=== PATIENT | male | born 1945 | race Caucasian/White ===

== ENCOUNTER 2017-08-27 11:17 | Outpatient (CLI) | payer MEDICARE ==
--- NOTE | 2017-08-27 12:42 | RAD ---
LUMBAR SPINE 3 VIEWS: HISTORY: M54.5, low back pain. COMPARISON: None. FINDINGS: Moderate degenerative disk space height loss throughout the lumbar spine. Grade I 3 mm L4 to L5 ante rolisthesis in neutral position which does not significantly change with flexion or extension. Large anterior osteophytes throughout the spine. There is extensive degenerative disease of the interspinous space between L3-L5 with subchondral scle rosis and erosions. IMPRESSION: 1. Degenerative changes. No acute abnormality. 2. Grade I L4-L5 anterolisthesis without translation. 3. Moderate advanced degenerative disease of the infraspinatus spaces lower lumbar spine. POS: MIKI
== END 2017-08-27 11:18 | disposition home or self-care (01) ==
LOC: TBSIIMAG 11:17
PROVIDERS: ATTEND Neurological Surgery
DX: M54.5 Low back pain (principal); M47.896 Other spondylosis, lumbar region; M43.16 Spondylolisthesis, lumbar region
CPT/HCPCS: 72100

== ENCOUNTER 2018-04-30 05:51 | Inpatient (IN) | payer MEDICARE ==
--- NOTE | 2018-04-29 20:05 | HP ---
HISTORY OF PRESENT ILLNESS: Mr. De Luna is a 72-year-old male, who presents with low back pain with symptoms of neurogenic claudication. He has these symptoms for several years, the pain is in his bilateral buttox and is getting worse.When standing he has to lean forward or sit down to relive the pain. the low back is non-tender to palpation. He is unable to walk for more than a block because of the pain. he has not had any physical therapy or injections in the lumbar spine. If he goes shopping he needs a cart, to lean on. REVIEW OF SYSTEMS: A 10-point review of systems has been completed and is negative other than stated in the above HPI. PAST MEDICAL HISTORY: 1. Hypertension. 2. Diabetes type 2. 3. Lumbar spinal stenosis. FAMILY HISTORY: Father is , diagnosed with cancer. Mother is , diagnosed with cancer. Siblings are alive. SOCIAL HISTORY: Former smoker, retired, with three children. MEDICATIONS: 1. Amlodipine. 2. Amiodarone. 3. Clonidine. 4. Gabapentin. 5. Hydralazine. 6. Lisinopril. 7. Metoprolol. 8. Onglyza. 9. Aspirin 81 mg. 10. Fish oil. ALLERGIES: NO KNOWN DRUG ALLERGIES. PHYSICAL EXAMINATION: HEENT: Head is normocephalic and atraumatic. Hearing is intact. Vision is intact. Pupils are equal, round, and reactive to light. Extraocular movements are intact. Moist mucous membranes. Trachea is midline. No masses are noted. PSYCH: Normal mood and affect. RESPIRATIONS: Normal work of breathing on room air. MUSCULOSKELETAL: Extremities,5/5 strength in bilateral iliopsoas, quadriceps, hamstrings, right TA and EHL All lung ayala clear. No wheezing or crackles. NEUROLOGIC: The patient is awake and alert. Cranial nerves II through XII are grossly intact. Speech is fluent. Answers questions appropriately. The patient walks with a forward flexion. Diminished reflexes ASSESSMENT AND PLAN: Lumbar stenosis with neurogenic claudication. Dr. Gonzalez has offered laminectomy with TLIF We have discussed the indications, risks, and benefits, and alternatives and expected results from surgery. The risks discussed included, but were not limited to, bleeding, infection, CSF leak, nerve damage, weakness, incontinence, spinal cord injury, wheelchair dependence, loss of vision, hardware displacement, cardiopulmonary complications of anesthesia or . Long-term complications discussed include, but were not limited to degradation of surrounding disks or need for further surgery. The patient states understanding and is willing to proceed with surgery. Job ID: [id number] [facility]
[2018-04-30] MEDS ORDERED: Thrombin 5000 UNITS/5 ML VIAL ONE (06:21)
[2018-04-30] MEDS ORDERED: Bupivacaine HCl 0.5%/Epinephrine 1:200,000/PF 30 ml Vial ONE (06:21)
[2018-04-30] MEDS ORDERED: Sodium Chloride 0.9% 30 ML ONE (06:21)
[2018-04-30] MEDS ORDERED: CEFAZOLIN 2 GM/50 ML BAG ONE (06:21)
[2018-04-30 06:27] LABS: Hemoglobin 12.1 g/dL (14.0-18.0); Mean Corpuscular HGB CONC 33.1 g/dL (32.0-36.0); Mean Corpuscular Hemoglobin 30.4 pg (27.0-31.0); Mean Corpuscular Volume 91.8 fL (78.0-98.0); Mean Platelet Volume 7.4 fL (7.4-10.4); Platelet Count 254 thou/uL (130-400); RBC Distribution Width 12.7 % (11.5-14.5); Red Blood Cell (RBC) Count 3.98 mill/uL (4.70-6.10); White Blood Cell (WBC) Count 5.7 thou/uL (4.8-10.8)
[2018-04-30 06:33] LABS: PTT 30.7 SEC (22.9-36.1); Prothrombin Time 13.4 SEC (12.0-14.7)
[2018-04-30] MEDS ORDERED: Fentanyl 100 MCG/2 ML VIAL ONE ×2 (07:07→14:36)
[2018-04-30] MEDS ORDERED: Rocuronium Bromide 50 MG/5 ML VIAL ONE (09:31)
[2018-04-30] MEDS ORDERED: PHENYLEPHRINE-NS 100 MCG/ML 10 ML SYRINGE ONE (09:32)
[2018-04-30] MEDS ORDERED: Promethazine 25 MG TAB PO PRN (13:43)
[2018-04-30] MEDS ORDERED: Mag-Al 1200 mg/1200 mg/30 ML UDCUP PO PRN (13:43)
[2018-04-30] MEDS ORDERED: Ondansetron PF 4 MG/2 ML Vial IVP PRN (13:43)
[2018-04-30] MEDS ORDERED: Promethazine HCl 25 MG/ML VIAL IM PRN (13:43)
[2018-04-30] MEDS ORDERED: Morphine 4 MG/ML VIAL SLOW IVP PRN ×2 (13:43)
[2018-04-30] MEDS ORDERED: Bisacodyl 10 MG SUPP PR PRN (13:43)
[2018-04-30] MEDS ORDERED: diphenhydrAMINE 25 MG CAP PO PRN (13:43)
[2018-04-30] MEDS ORDERED: Acetaminophen/Codeine 30-300mg Tablet PO PRN (13:43)
[2018-04-30] MEDS ORDERED: Milk Of Magnesia 30 ML UDCUP PO PRN (13:43)
[2018-04-30] MEDS ORDERED: diphenhydrAMINE 50 MG/ML VIAL IVP PRN (13:43)
[2018-04-30] MEDS ORDERED: Acetaminophen 325 MG TAB PO PRN (13:43)
[2018-04-30] MEDS ORDERED: Acetaminophen 650 MG Suppository PR PRN (13:43)
[2018-04-30] MEDS ORDERED: CEFAZOLIN/Water 2 GM/20 ML SYRINGE SLOW IVP SCH (13:45)
[2018-04-30 15:46] VITALS: BMI 30.9
[2018-04-30] MEDS ORDERED: Dextrose 50% Abboject 50 ML SYRINGE SLOW IVP PRN (16:24)
[2018-04-30] MEDS ORDERED: Dextrose 5% in Water 1,000 ML IV PRN (16:24)
[2018-04-30] MEDS: CEFAZOLIN 2 GM/50 ML-DEXTROSE 2 GM in Premix Bag 1 BAG IVPB SCH (16:56)
[2018-04-30] MEDS: Sodium Chloride 0.9% 1,000 ML IV SCH (16:57)
[2018-04-30] MEDS: hydrALAZINE 25 MG TAB PO SCH ×2 (16:57→20:56)
[2018-04-30] MEDS ORDERED: Lidocaine 1% PF 5 ML VIAL ONE (20:11)
[2018-04-30] MEDS ORDERED: Glycopyrrolate 0.2 MG/ML 5 ML SYRINGE ONE (20:11)
[2018-04-30] MEDS ORDERED: ePHEDrine/0.9% NaCl/PF SYRINGE 50 mg/10 ml ONE (20:11)
[2018-04-30] MEDS ORDERED: PROPOFOL 200 MG/20 ML VIAL ONE (20:11)
[2018-04-30] MEDS ORDERED: Dexamethasone 20 MG/5 ML VIAL ONE (20:11)
[2018-04-30] MEDS ORDERED: Ondansetron PF 4 MG/2 ML Vial ONE (20:11)
--- NOTE | 2018-04-30 20:17 | OP ---
DATE OF PROCEDURE: 04/30/2018 COMMERCIAL MAKEUP ARTIST: Sara Quinn PA-C. PREOPERATIVE INDICATION: Treat pain and prevent neurological deterioration. PREOPERATIVE DIAGNOSES: Multilevel lumbar stenosis with severe neurogenic claudication, unstable spondylolisthesis at L4-5. POSTOPERATIVE DIAGNOSES: Multilevel lumbar stenosis with severe neurogenic claudication, unstable spondylolisthesis at L4-5. OPERATIVE PROCEDURE: Decompressive laminectomy, medial facetectomy, and foraminotomy at L2-3, L3-4, L4-5, L5-S1; transforaminal lumbar interbody arthrodesis, L4-5; placement of intervertebral biomechanical device, L4-L5; pedicle screw and cesario instrumentation, L4-L5; posterolateral arthrodesis, L4-L5; local morselized autograft and morselized allograft. PREOPERATIVE MEDICATION: Ancef 2 g IV. DRAINS: #1. DRAIN TYPE: A 10-[place] Gil. DESCRIPTION OF PROCEDURE: The patient was brought to the operating room. General endotracheal anesthesia was induced. The patient was positioned prone on the Av frame with the appropriate padding for the chest and hips. A lateral fluoro-radiograph was used to plan our incision. The lumbar skin was sterilely prepped and draped. We opened our incision with a 10-blade knife and controlled bleeding with bipolar cautery. We used monopolar cautery to dissect through subcutaneous tissues to the thoracodorsal fascia. We incised the fascia in the midline and we reflected the paraspinal muscles off the spinous process and lamina of L2, L3, L4, L5, and S1. Self-retaining retractor was placed. On a lateral fluoro-radiograph, we confirmed the level of spine which we were operating. We then carried our dissection over the facet joints at L3-4 and L4-5 to identify the transverse processes of L4 and L5 bilaterally. We irrigated once again with bacitracin irrigation and turned our attention to decompression. Using an Adson rongeur, we removed the spinous processes from L2 to S1. Using a Kerrison rongeur, we fashioned a laminectomy down the midline. We performed medial facetectomies at each of the interspaces and foraminotomies over the exiting nerve roots. At the completion of our decompression, we could pass a Ray ball probe through the lateral recess and out the foramen along with the L2, L3, L4, L5, and S1 nerve roots. With our decompression secured, we turned our attention to arthrodesis. I performed a complete facetectomy at L4-5 on the left side and through the foramen, I accessed the intervertebral space. We removed disk material using curettes and rongeurs. We prepared the endplates for grafting. We measured the height of the interspace to 13 mm with a rectangular bone rasp. A 13 mm PEEK intervertebral graft was brought into the field. The laminectomy bone was carefully morselized on the back table. All soft tissue was removed and the morselized bone was added to demineralized bone matrix as our fusion substrate. The substrate was packed into the interbody device and that device was advanced into the interspace under radiographic guidance to the appropriate depth. We turned our attention to pedicle screw instrumentation. Using bony anatomic landmarks, palpation of the medial portion of the pedicles, and a lateral fluoro-radiograph as a guide, we chose the entry points for pedicle screws at L4 and L5 bilaterally. We drilled out the entry points and then used a bone awl to advance through the pedicles into the vertebral bodies. We tapped the trajectory with a threaded tap and then probed them. We found that trajectory was completely encased in bone and then we placed 6.5 x 55 mm screws into the pedicles of L4 and L5 bilaterally. A 360-degree image set was generated with our isocentric C-arm. This confirmed adequate positioning of our instrumentation. We then brought the rods down into the screw heads and tightened caps over the rods using a torque/counter-torque mechanism. We ensured adequate tightness. Before completely tightening, there was gentle compression placed across the interspace to keep our interbody graft in place. We irrigated with bacitracin irrigation. We decorticated the transverse processes of L4 and L5 bilaterally and over the decorticated bone, we left demineralized bone matrix and morselized autograft as our posterolateral fusion substrate. We tunneled the drain inferiorly through a separate stab incision. We irrigated the center of the wound once again. We treated the wound with vancomycin powder and we closed in anatomical layers. This is a clean case, no contamination. Job ID: [id number]
[2018-04-30] MEDS: tiZANidine HCl 4 MG TAB PO PRN (20:53)
[2018-04-30] MEDS: cloNIDine 0.1 MG TAB PO SCH (20:53)
[2018-04-30] MEDS: Gabapentin 300 MG CAP PO SCH (20:53)
[2018-05-01] MEDS: CEFAZOLIN 2 GM/50 ML-DEXTROSE 2 GM in Premix Bag 1 BAG IVPB SCH ×3 (00:02→20:44)
[2018-05-01] MEDS: Acetaminophen/Codeine 30-300mg Tablet PO PRN (00:06)
[2018-05-01] MEDS: Sodium Chloride 0.9% 1,000 ML IV SCH ×2 (02:06→14:17)
[2018-05-01] MEDS: Tamsulosin HCl 0.4 MG CAP PO SCH (06:34)
[2018-05-01 06:52] LABS: Hemoglobin 8.5 g/dL (14.0-18.0)
--- NOTE | 2018-05-01 07:37 | PDOC.PN ---
- Subjective Encounter Start Date: 05/01/18 Encounter Start Time: 09:00 Subjective: Patient reports improved pain in back/buttocks. Had to have guthrie replaced -: this AM due to difficulty urinating. - Objective MAR Reviewed: Yes Vital Signs & Weight: Vital Signs (12 hours) Temp Pulse Resp BP BP Pulse Ox 05/01/18 04:29 97.5 F L 87 18 127/76 99 05/01/18 00:23 98 F 83 18 167/89 H 99 04/30/18 21:03 97.4 F L 62 24 H 143/90 H 99 04/30/18 20:56 75 185/83 H 04/30/18 20:53 185/83 H Weight Weight 221 lb 12.807 oz I&O: 04/30/18 05/01/18 05/02/18 06:59 06:59 06:59 Intake Total 720 Output Total 815 Balance -95 Result Diagrams: 05/01/18 06:03 Additional Labs: Accuchecks 04/30/18 04/30/18 21:23 14:54 POC Glucose 274 H 202 H Phys Exam - Physical Examination Constitutional: NAD HEENT: moist MMs Respiratory: no wheezing, no rales, no rhonchi Cardiovascular: RRR, no significant murmur Gastrointestinal: soft, non-tender, positive bowel sounds Neurological: non-focal, moves all 4 limbs Psychiatric: normal affect, A&O x 3 Deviation from normal: dressing on lower back C/D/I, drain with serosanenous fluid in place Dx/Plan (1) Lumbosacral spinal stenosis Status: Acute Comment: S/P Laminectomy (2) Hypertension Code(s): I10 - ESSENTIAL (PRIMARY) HYPERTENSION Status: Chronic Comment: BP meds resumed (3) CAD (coronary artery disease) Code(s): I25.10 - ATHSCL HEART DISEASE OF [place] CORONARY ARTERY W/O ANG PCTRS Status: Chronic (4) Diabetes mellitus type 2 in obese Code(s): E11.69 - TYPE 2 DIABETES MELLITUS WITH OTHER SPECIFIED COMPLICATION; E66.9 - OBESITY, UNSPECIFIED Status: Chronic (5) Paroxysmal atrial fibrillation Code(s): I48.0 - PAROXYSMAL ATRIAL FIBRILLATION Status: Chronic (6) Urinary retention Code(s): R33.9 - RETENTION OF URINE, UNSPECIFIED Status: Acute Comment: Guthrie placed - Plan cont current plan of care, PT/OT, DVT proph w/SCDs * . - Discharge Day Encounter end time: 09:15
[2018-05-01] MEDS: Lisinopril 20 MG TAB PO SCH (08:46)
[2018-05-01] MEDS: Vit A,C & E/Lutein/Minerals Tablet PO SCH (08:46)
[2018-05-01] MEDS: Lactinex Tablet PO SCH (08:46)
[2018-05-01] MEDS: Ferrous Sulfate 325 MG TAB PO SCH (08:46)
[2018-05-01] MEDS: Amlodipine 10 MG TAB PO SCH (08:47)
[2018-05-01] MEDS: cloNIDine 0.1 MG TAB PO SCH ×2 (08:47→20:45)
[2018-05-01] MEDS: hydrALAZINE 25 MG TAB PO SCH ×3 (08:47→20:45)
[2018-05-01] MEDS: Stress 600 With Zinc 1 TAB PO SCH (08:48)
[2018-05-01] MEDS: Cyanocobalamin (Vitamin B-12) 1,000 MCG TAB PO SCH (08:54)
[2018-05-01] MEDS ORDERED: Non-Formulary Item 1 EACH (Cholecalciferol (Vitamin D3) [Vitamin D3] 10,000 UNIT) PO SCH (09:00)
[2018-05-01] MEDS ORDERED: CYANOCOBALAMIN SL SCH (09:00)
[2018-05-01] MEDS ORDERED: LACTOBACILLUS COMBINATION NO 4 PO SCH (09:00)
[2018-05-01] MEDS ORDERED: Non-Formulary Item 1 EACH (Vit B Comp/C/Folic/Iron/Vit E [Vitamin B Complex Tablet] 1 TAB PO SCH (09:00)
[2018-05-01] MEDS ORDERED: INSULIN GLARGINE HUM REC ANLOG 25 UNIT SC SCH (09:00)
[2018-05-01] MEDS ORDERED: Non-Formulary Item 1 EACH (Vit C/Vit E/Lutein/Min/Omega-3 [Ocuvite Softgel] 1 CAP) PO SCH (09:00)
[2018-05-01] MEDS: Insulin Glargine 20 UNITS in Pre-Filled Syringe 1 EACH SC SCH (09:38)
[2018-05-01] MEDS: Insulin Regular 300 UNITS/3 ML VIAL SC PRN (16:25)
[2018-05-01] MEDS: tiZANidine HCl 4 MG TAB PO PRN (16:26)
[2018-05-01] MEDS: Gabapentin 300 MG CAP PO SCH (20:45)
--- NOTE | 2018-05-02 01:35 | CON ---
DATE OF CONSULTATION: PRIMARY TEAM: Neurosurgery, Dr. Gonzalez. REASON FOR CONSULTATION: Medical management. HISTORY OF PRESENT ILLNESS: This is a 72-year-old white man with a known history of lumbar stenosis that has been progressive with symptoms of neurologic claudication. Symptoms progressed over the last few years with bilateral buttock pain and then weakness into the right leg that caused a fall a month ago. The patient has to lean forward or sit down to relive the pain, he is unable to walk upright. He was admitted today and had a lumbar laminectomy with TLIF by Dr. Gonzalez and is recovering now in his room. He denies any other active complaints. He did report that he had some trouble with urination a couple of weeks ago and was started on ciprofloxacin, which seems to have helped. PAST MEDICAL HISTORY: 1. Hypertension. 2. Diabetes mellitus type 2, insulin dependent. 3. Lumbar spinal stenosis. 4. Coronary artery disease, status post 2 stents placed. 5. Atrial fibrillation, on chronic anticoagulation, held since surgery. PAST SURGICAL HISTORY: 1. Coronary artery stents x2. 2. Tonsillectomy as a child. SOCIAL HISTORY: The patient is a former smoker. No alcohol or illicit drugs. He is retired. and has 3 children. FAMILY HISTORY: Father of cancer. Mother of cancer. Siblings are alive. ALLERGIES: NO KNOWN DRUG ALLERGIES. CURRENT MEDICATIONS: 1. Saw palmetto 500 mg daily. 2. Multivitamin daily. 3. Probiotic 1 capsule daily. 4. Cranberry 400 mg daily. 5. Vitamin B complex tablet 1 tablet daily. 6. Vitamin B12 1 tab daily. 7. Vitamin D3 10,000 units p.o. daily. 8. Iron 65 mg daily. 9. Ocuvite Softgel 1 capsule daily. 10. Turmeric 1 tablet daily. 11. Lisinopril 20 mg daily. 12. Aspirin 81 mg daily. 13. Amlodipine 5 mg daily. 14. Metoprolol succinate 200 mg at night. 15. Gabapentin 300 mg at night. 16. Myrbetriq 50 mg each morning. 17. Hydralazine 25 mg 3 times a day. 18. Toujeo SoloStar (insulin glargine) 25 units subcu each morning, although he often holds this if his blood sugar is less than 100. 19. Clonidine 0.1 mg twice a day. 20. Xarelto 20 mg twice a day. 21. Cipro 500 mg twice a day. REVIEW OF SYSTEMS: CONSTITUTIONAL: No fevers. No chills. No weight changes. EYES: No double vision or blurred vision. ENT: No congestion, drainage, or sore throat. CARDIOVASCULAR: No chest pain. No palpitations or racing heart. PULMONARY: No coughing, wheezing, or shortness of breath. GASTROINTESTINAL: No abdominal pain. No nausea or vomiting. No diarrhea or constipation. GENITOURINARY: Some difficulty with urination couple of weeks ago, now improved. No hematuria. MUSCULOSKELETAL: See HPI. SKIN: He had a couple of scratches on his lower extremities that became a little infected; the one on his right lower extremity has healed with Neosporin cream, and the scratch on the back of his left Achilles tendon is healing well, also no longer infected, being treated with Neosporin. NEUROLOGIC: No numbness or tingling, just weakness especially in his right leg. PHYSICAL EXAMINATION: VITAL SIGNS: Blood pressure 161/80, pulse 77, respirations 16, temperature 97.6 , and O2 saturation 99% on 2 L nasal cannula. GENERAL: This is a well-developed obese white male, in no acute distress. He is a little sleepy from the surgery. HEENT: Eyes, pupils are equal, round, and reactive to light. Oropharynx is clear without lesions, erythema, or exudate. NECK: Supple. No lymphadenopathy. No thyroid nodules or enlargement. No JVD. HEART: Regular rate and rhythm. No murmurs, rubs, or gallops. LUNGS: Clear to auscultation bilaterally. No wheezes, crackles, or rhonchi. ABDOMEN: Soft, nontender to palpation. Normoactive bowel sounds. No hepatosplenomegaly or other masses. EXTREMITIES: No clubbing, cyanosis, or edema. SKIN: The patient has a little bit of scabbed scrape on his left Achilles tendon area that is healing well, no infection. No other rashes or lesions noted. NEUROLOGIC: The patient has intact sensation in all extremities. No facial droop. LABORATORY DATA: CBC with a mildly low hemoglobin of 12.1, hematocrit of 36.5, the rest is normal. Coagulation profile within normal limits. Glucose 97. ASSESSMENT AND PLAN: 1. Lumbosacral stenosis, status post laminectomy. 2. Hypertension. Resume the patient's antihypertensives and monitor for control of blood pressure. 3. Diabetes mellitus type 2, insulin dependent. We will continue the patient's insulin glargine subcutaneous. We will also check fingerstick blood sugars before every meal and at bedtime along with a low-insulin sliding scale. 4. Gastrointestinal prophylaxis. The patient is already on Protonix daily. 5. Code status. I did discuss this with the patient, he is a full code. Should he be incapacitated, his would be his decision maker, her name is Danni De Luna. Job ID: [id number] [facility]
[2018-05-02] MEDS: Sodium Chloride 0.9% 1,000 ML IV SCH ×2 (05:29→17:53)
[2018-05-02] MEDS: CEFAZOLIN 2 GM/50 ML-DEXTROSE 2 GM in Premix Bag 1 BAG IVPB SCH ×3 (05:58→19:58)
[2018-05-02] MEDS: Tamsulosin HCl 0.4 MG CAP PO SCH (06:03)
[2018-05-02] MEDS: Insulin Glargine 20 UNITS in Pre-Filled Syringe 1 EACH SC SCH (08:28)
[2018-05-02] MEDS: Cyanocobalamin (Vitamin B-12) 1,000 MCG TAB PO SCH (08:29)
[2018-05-02] MEDS: cloNIDine 0.1 MG TAB PO SCH ×2 (08:29→22:50)
[2018-05-02] MEDS: Amlodipine 10 MG TAB PO SCH (08:30)
[2018-05-02] MEDS: Ferrous Sulfate 325 MG TAB PO SCH (08:32)
[2018-05-02] MEDS: hydrALAZINE 25 MG TAB PO SCH ×3 (08:32→22:51)
[2018-05-02] MEDS: Lisinopril 20 MG TAB PO SCH (08:33)
[2018-05-02] MEDS: Lactinex Tablet PO SCH (08:33)
[2018-05-02] MEDS: Vit A,C & E/Lutein/Minerals Tablet PO SCH (08:33)
[2018-05-02] MEDS: Acetaminophen/Codeine 30-300mg Tablet PO PRN ×2 (08:33→15:04)
[2018-05-02] MEDS: tiZANidine HCl 4 MG TAB PO PRN ×2 (08:41→15:04)
[2018-05-02] MEDS: Stress 600 With Zinc 1 TAB PO SCH (11:01)
--- NOTE | 2018-05-02 11:48 | PRG ---
DATE OF SERVICE: 05/02/2018 Mr. De Luna is doing quite well. His pain control has been remarkable and he is ambulating independently in the hallway. He is now urinating spontaneously with the Rodriguez removed. His LINDSEY was removed earlier. I anticipate home tomorrow. Job ID: [id number]
[2018-05-02] MEDS: Insulin Regular 300 UNITS/3 ML VIAL SC PRN ×3 (12:23→21:30)
--- NOTE | 2018-05-02 12:25 | PDOC.PN ---
- Subjective Encounter Start Date: 05/02/18 Encounter Start Time: 12:25 Subjective: f/u s/p lumbar decompression for multilevel severe stenosis POD #2 -: Ambulating with PT. Had post-op urinary retention with Rodriguez placed. - Objective MAR Reviewed: Yes Vital Signs & Weight: Vital Signs (12 hours) Temp Pulse Resp BP BP Pulse Ox 05/02/18 08:33 135/76 05/02/18 08:32 135/76 05/02/18 08:30 135/76 05/02/18 08:29 135/76 05/02/18 07:29 98.5 F 74 16 135/78 93 L 05/02/18 04:45 98.4 F 97 15 139/76 95 Weight Weight 221 lb 12.807 oz I&O: 05/01/18 05/02/18 05/03/18 06:59 06:59 06:59 Intake Total 720 2120 Output Total 815 4005 25 Balance -95 -1885 -25 Result Diagrams: 05/01/18 06:03 Additional Labs: Accuchecks 05/01/18 05/01/18 05/01/18 20:30 15:53 09:37 POC Glucose 273 H 238 H 154 H 05/01/18 05:41 POC Glucose 151 H Laboratory Tests 04/30/18 06:19 Hgb 12.1 L Phys Exam - Physical Examination Constitutional: NAD HEENT: PERRLA, sclera anicteric, oral pharynx no lesions Neck: no nodes, no JVD, supple, full ROM Respiratory: no wheezing, no rales, no rhonchi, clear to auscultation bilateral S1, S2 Cardiovascular: RRR, no significant murmur, no rub, gallop Gastrointestinal: soft, non-tender, no distention, positive bowel sounds Musculoskeletal: pulses present Neurological: normal sensation, moves all 4 limbs Psychiatric: A&O x 3 Skin: normal turgor, cap refill <2 seconds Dx/Plan (1) Lumbosacral spinal stenosis Status: Acute Comment: s/p lumbar laminectomy POD #2, pain control, PT for mobilization (2) Urinary retention Code(s): R33.9 - RETENTION OF URINE, UNSPECIFIED Status: Acute Comment: Rodriguez catheter placed, monitor urine output (3) CAD (coronary artery disease) Code(s): I25.10 - ATHSCL HEART DISEASE OF [place] CORONARY ARTERY W/O ANG PCTRS Status: Chronic Comment: ASA on hold post-op, resume in next 48h (4) Diabetes mellitus type 2 in obese Code(s): E11.69 - TYPE 2 DIABETES MELLITUS WITH OTHER SPECIFIED COMPLICATION; E66.9 - OBESITY, UNSPECIFIED Status: Chronic Comment: ISS, ADA, Glargine 20u daily (5) Hypertension Code(s): I10 - ESSENTIAL (PRIMARY) HYPERTENSION Status: Chronic Qualifiers: Hypertension type: essential hypertension Qualified Code(s): I10 - Essential (primary) hypertension Comment: BP meds resumed, titrate for optimal response - Plan PT/OT, bilingual social worker, out of bed/ambulate, DVT proph w/SCDs Stable overall -: continue supportive mgmt -: Pain control as clinically indicated -: PT for mobilization -: AM lab: CBC * .
[2018-05-02] MEDS: Gabapentin 300 MG CAP PO SCH (19:59)
[2018-05-03] MEDS: Acetaminophen/Codeine 30-300mg Tablet PO PRN ×2 (01:47→08:53)
[2018-05-03] MEDS: CEFAZOLIN 2 GM/50 ML-DEXTROSE 2 GM in Premix Bag 1 BAG IVPB SCH (04:12)
[2018-05-03] MEDS: Tamsulosin HCl 0.4 MG CAP PO SCH (05:41)
[2018-05-03 06:16] LABS: Band 3 % (5-11); Eosinophils 3 % (0-10); Lymphocytes 26 % (21-51); MDiff Complete? YES; Mean Corpuscular HGB CONC 33.6 g/dL (32.0-36.0); Mean Corpuscular Hemoglobin 31.4 pg (27.0-31.0); Mean Corpuscular Volume 93.5 fL (78.0-98.0); Monocytes 5 % (0-10); Neutrophil 63 % (42-75); PLT Morphology Comment Appears Adequate; Platelet Count 175 thou/uL (130-400); RBC Distribution Width 13.3 % (11.5-14.5); Red Blood Cell (RBC) Count 2.56 mill/uL (4.70-6.10); White Blood Cell (WBC) Count 7.4 thou/uL (4.8-10.8)
--- NOTE | 2018-05-03 07:32 | DIS ---
DATE OF ADMISSION: 04/30/2018 DATE OF DISCHARGE: 05/03/2018 The patient is a 72-year-old male, status post laminectomy L2-S1 as well as L4 to L5 TLIF. Following the surgery, he was transitioned to the Med/Surg floor, where his pain was well controlled with p.o. medications, he was tolerating a regular diet. The patient did have LINDSEY drain placed intraoperatively and this output trended down nicely. Intially had some urinary retention. Rodriguez was placed. Rodriguez was also removed on postoperative day #2, and he passed the postvoid trial without difficulty. He has been ambulating easily throughout the hallways. We initially considered inpatient rehabilitation, but considering how well the patient was doing, he elected to go home with home health care. The patient is sitting comfortably in the bed. He is awake, alert, in no acute distress. He has free active range of motion of all extremities. No focal motor weakness. No reflex asymmetry. We will plan to dismiss the patient to home. I have discussed home care precautions. The patient should follow up with Dr. Gonzalez in 2 weeks. Job ID: [id number] [facility]TDD
[2018-05-03 08:30] VITALS: TEMP 99.3
[2018-05-03] MEDS: Sodium Chloride 0.9% 1,000 ML IV SCH (09:42)
[2018-05-03] MEDS: Cyanocobalamin (Vitamin B-12) 1,000 MCG TAB PO SCH (09:43)
[2018-05-03] MEDS: Ferrous Sulfate 325 MG TAB PO SCH (09:43)
[2018-05-03] MEDS: Lactinex Tablet PO SCH (09:43)
[2018-05-03] MEDS: Lisinopril 20 MG TAB PO SCH (09:43)
[2018-05-03] MEDS: cloNIDine 0.1 MG TAB PO SCH (09:43)
[2018-05-03] MEDS: Insulin Glargine 20 UNITS in Pre-Filled Syringe 1 EACH SC SCH (09:43)
[2018-05-03] MEDS: hydrALAZINE 25 MG TAB PO SCH (09:43)
[2018-05-03] MEDS: Amlodipine 10 MG TAB PO SCH (09:43)
[2018-05-03 09:44] VITALS: BP 103/61
[2018-05-03] MEDS: Stress 600 With Zinc 1 TAB PO SCH (09:44)
[2018-05-03] MEDS: Vit A,C & E/Lutein/Minerals Tablet PO SCH (09:44)
--- NOTE | 2018-05-04 03:31 | DIS ---
DATE OF ADMISSION: 04/30/2018 DATE OF DISCHARGE: 05/03/2018 DISCHARGE DIAGNOSES: 1. Lumbosacral spinal stenosis. 2. Status post lumbar laminectomy, L2 through S1. 3. Postoperative urinary retention, resolved. 4. Coronary artery disease, chronic and stable. 5. Diabetes mellitus type 2, insulin requiring. 6. Hypertension, stable. PRIMARY SERVICE ATTENDING: Dr. Gonzalez with Neurosurgery Service. [facility] for medical management. PERTINENT LAB AND X-RAY FINDINGS: Hemoglobin ranged between 8.0 to 12.1. HOSPITAL COURSE: The patient was admitted under the Neurosurgical Service, presenting with severe lumbar stenosis with associated neurogenic claudication. The patient underwent decompressive laminectomy from L2 through S1 on 04/30/2018. The patient was managed postoperatively with pain control and slow return to ambulation. The patient did have postoperative urinary retention, requiring Rodriguez catheter placement which was subsequently removed after successful resolution and passing a postvoid residual trial. The patient resumed his regular antihypertensive regimen and overall remained clinically stable. The patient initially slated for transfer to inpatient rehabilitation; however, appropriately met all milestones and return home with home health services on 05/03/2018. DISCHARGE MEDICATIONS: 1. Amlodipine 5 mg p.o. daily. 2. Vitamin D3 10,000 units p.o. daily. 3. Ciprofloxacin 500 mg p.o. B.i.d. 4. Clonidine 0.1 mg p.o. b.i.d. 5. Cranberry extract 4200 mg p.o. daily. 6. Vitamin B12 two tablets sublingually daily. 7. Gabapentin 300 mg p.o. at bedtime. 8. Hydralazine 25 mg p.o. t.i.d. 9. Glargine insulin 25 units subcutaneously q.a.m. 10. Iron 65 mg p.o. daily. 11. Lactobacillus 1 capsule p.o. daily. 12. Lisinopril 20 mg p.o. daily. 13. Toprol-XL 200 mg p.o. at bedtime. 14. Myrbetriq 50 mg p.o. daily. 15. Multivitamin 1 tablet p.o. daily. 16. Saw palmetto 500 mg p.o. daily. 17. Turmeric 1 tablet p.o. daily. 18. Multivitamin 1 tablet p.o. daily. FOLLOWUP: 1. The patient is to follow up with his primary care provider, Dr. Jasmyn Delagdillo. 2. The patient is follow up with Dr. Gonzalez within 2 weeks of discharge. CONDITION ON DISCHARGE: Stable. ACTIVITY: Per Neurosurgery recommendations. DIET: ADA and heart healthy. CODE STATUS: Full. DISPOSITION: Home with home health services, 05/03/2018. Job ID: [id number]
== END 2018-05-03 10:47 | disposition home or self-care (01) | DRG 455 ==
LOC: SURG A 05:51 → EDSTATUS 12:00 → SJJU 14:42
PROVIDERS: ADMIT Neurological Surgery; ATTEND Neurological Surgery
PROC: 0SG10AJ Fusion of 2 or more Lumbar Vertebral Joints with Interbody Fusion Device, Posterior Approach, Anterior Column, Open Approach (ICD-10-PCS; principal; 2018-04-30)
PROC: 0SG3071 Fusion of Lumbosacral Joint with Autologous Tissue Substitute, Posterior Approach, Posterior Column, Open Approach (ICD-10-PCS; 2018-04-30)
PROC: 01NB0ZZ Release Lumbar Nerve, Open Approach (ICD-10-PCS; 2018-04-30)
DX: M48.062 Spinal stenosis, lumbar region with neurogenic claudication (principal); M43.16 Spondylolisthesis, lumbar region; E11.9 Type 2 diabetes mellitus without complications; Z87.891 Personal history of nicotine dependence; Z79.899 Other long term (current) drug therapy; Z79.82 Long term (current) use of aspirin; R33.9 Retention of urine, unspecified; I10 Essential (primary) hypertension; I25.10 Atherosclerotic heart disease of native coronary artery without angina pectoris; I48.91 Unspecified atrial fibrillation; I48.0 Paroxysmal atrial fibrillation
CPT/HCPCS: 36415; 36416; 76001; 85007; 85018; 85027; 85610; 85730; 86850; 86900; 86901; 93005; 93010; C1713; C1768; G8978-GP-CL; G8979-GP-CJ; G8987-GO-CI; G8988-GO-CI; G8989-GO-CI; J0670; J1100; J1815; J2001; J2405; J2704; J3010; J3370; J3490